=== PATIENT | female | born 1945 | race Caucasian/White ===

== ENCOUNTER → 2018-05-20 | Outpatient (CLI) | payer MEDICARE, OTHER | END | disposition home or self-care (01) | LOC: LAB SHORT 12:15 → LAB 12:15 | PROVIDERS: Obstetrics & Gynecology | DX: Z11.51 Encounter for screening for human papillomavirus (HPV) (principal); Z91.89 Other specified personal risk factors, not elsewhere classified | CPT/HCPCS: 87624; G0123 ==

== ENCOUNTER 2019-01-27 07:47 | Day surgery (SDC) | payer MEDICARE, OTHER ==
[~2019-01-27] VITALS: Ht 170.2 cm; Wt 69.1 kg
[~2019-01-27 07:47] MED LIST: ASPI81CH PO; BENA20 PO; L-LYSINE500 MG PO; METAMUCIL POWD174 GM PO; MULTI VITAMIN1 EACH PO; SOLI5 PO; VITAMIN C125 MG PO; VITAMIN D35000 UNIT PO
--- NOTE | 2019-01-27 09:23 | NUR ---
01/27/19 0923 Ernst Johnson IV IN RIGHT AC WAS INFILTRATED. IV RESTARTED IN LEFT HAND WITHOUT INCIDENT, PATIENT TOLERATED WELL. INFILTRATED SITE WRAPPED WITH COBAN.
== END 2019-01-27 10:06 | disposition home or self-care (01) ==
LOC: ORSCSDS 07:47
PROVIDERS: Internal Medicine Gastroenterology
PROC: 0DJD8ZZ Inspection of Lower Intestinal Tract, Via Natural or Artificial Opening Endoscopic (ICD-10-PCS; principal; 2019-01-27 09:00)
DX: Z12.11 Encounter for screening for malignant neoplasm of colon (principal); K57.30 Diverticulosis of large intestine without perforation or abscess without bleeding; I10 Essential (primary) hypertension; K21.9 Gastro-esophageal reflux disease without esophagitis; Z87.891 Personal history of nicotine dependence; Z79.82 Long term (current) use of aspirin; Z79.899 Other long term (current) drug therapy
CPT/HCPCS: J0330; J1980; J2405; J7120

== ENCOUNTER → 2019-08-02 | Outpatient (CLI) | payer MEDICARE, OTHER ==
[2019-08-03 06:40] LABS: Candida species (DNA Probe) Negative (NEGATIVE); G. vaginalis (DNA Probe) Positive (NEGATIVE); T. vaginalis (DNA Probe) Negative (NEGATIVE)
[2019-08-04 15:07] LABS: HPV 16 Negative (Negative); HPV 18 Negative (Negative); HPV OTHER HR TYPES Positive (Negative)
== END | disposition home or self-care (01) ==
LOC: LAB SHORT 15:58 → LAB 15:58
PROVIDERS: Obstetrics & Gynecology
DX: Z01.419 Encounter for gynecological examination (general) (routine) without abnormal findings (principal); R87.810 Cervical high risk human papillomavirus (HPV) DNA test positive; Z91.89 Other specified personal risk factors, not elsewhere classified; N76.0 Acute vaginitis
CPT/HCPCS: 87480; 87510; 87624; 87625; 87660; G0123

== ENCOUNTER → 2020-08-03 | Outpatient (CLI) | payer MEDICARE, OTHER ==
[2020-08-04 07:21] LABS: Candida species (DNA Probe) Negative (NEGATIVE); G. vaginalis (DNA Probe) Positive (NEGATIVE); T. vaginalis (DNA Probe) Negative (NEGATIVE)
== END | disposition home or self-care (01) ==
LOC: LAB 16:45 → LAB SHORT 16:45
PROVIDERS: Advanced Practice Midwife
DX: N76.0 Acute vaginitis (principal)
CPT/HCPCS: 87480; 87510; 87660

== ENCOUNTER 2020-09-27 07:27 | Inpatient (IN) | payer MEDICARE, OTHER ==
[~2020-09-27] VITALS: Ht 167.6 cm; Wt 69.0 kg
[~2020-09-27 07:27] MED LIST changes: +ASCO500 PO; -ASPI81CH PO; +Aspirin EC81 MG PO; -METAMUCIL POWD174 GM PO; +METAMUCIL POWD575 GM PO; -VITAMIN C125 MG PO
[2020-09-27] MEDS ORDERED: NITROGLYCERIN0.4 M3 SL (07:51)
[2020-09-27 08:10] LABS: BASOPHILS ABSOLUTE AUTO 0.04 K/mm3 (0.00-0.23); BASOPHILS PERCENT AUTO 1 % (0-2); EOSINOPHILS ABSOLUTE AUTO 0.07 K/mm3 (0.00-0.68); EOSINOPHILS PERCENT AUTO 1 % (0-6); Hematocrit 42.8 % (33.0-51.0); Hemoglobin 14.2 g/dL (11.5-16.0); IMMATURE GRAN ABSOLUTE AUTO 0.02 K/mm3 (0.00-0.10); IMMATURE GRAN PERCENT AUTO 0 % (0-1); LYMPHOCYTES ABSOLUTE AUTO 1.32 K/mm3 (0.84-5.20); LYMPHOCYTES PERCENT AUTO 20 % (21-46); MONOCYTES ABSOLUTE AUTO 0.38 K/mm3 (0.16-1.47); MONOCYTES PERCENT AUTO 6 % (4-13); Mean Corpuscular HGB 32.1 pg (26.0-34.0); Mean Corpuscular HGB Conc 33.2 g/dL (31.5-36.5); Mean Corpuscular Volume 97 fL (80-100); Mean Platelet Volume 9.7 fL (9.1-12.4); NEUTROPHILS ABSOLUTE AUTO 4.72 K/mm3 (1.96-9.15); NEUTROPHILS PERCENT AUTO 72 % (41-73); Platelet Count 206 K/mm3 (150-400); RDW Coefficient Variation 12.2 % (11.7-14.2); RDW Standard Deviation 43.8 fL (35.1-46.3); Red Blood Cell Count 4.43 M/mm3 (3.80-5.20); White Blood Cell Count 6.55 K/mm3 (4.00-11.30)
[2020-09-27 08:27] LABS: Alanine Aminotransfer (ALT/SGP 46 U/L (12-78); Albumin, Blood 3.8 g/dL (3.4-5.0); Albumin/Globulin Ratio 1.1 (0.8-1.8); Alk Phos 93 U/L (50-136); Anion Gap 6 mmol/L (6-16); Aspartate Aminotrans (AST/SGOT 22 U/L (12-37); Bilirubin, Total 0.6 mg/dL (0.1-1.0); Blood Urea Nitrogen 20 mg/dL (8-24); Bun/Creatinine Ratio 30.8 (12.0-20.0); CO2, Blood 27 mmol/L (21-32); Calcium, Blood 9.7 mg/dL (8.5-10.1); Chloride, Blood 110 mmol/L (98-108); Creatinine, Blood 0.65 mg/dL (0.40-1.00); Globulin, Blood 3.6 g/dL (2.2-4.0); Glomerular Filtration Rate >60 (60-); Glucose, Blood 93 mg/dL (70-99); Potassium, Blood 3.9 mmol/L (3.5-5.5); Sodium, Blood 143 mmol/L (136-145); Total Protein, Blood 7.4 g/dL (6.4-8.2); Troponin I <0.015 ng/mL (0.000-0.040)
--- NOTE | 2020-09-27 13:35 | NUR ---
PT ARRIVED IN THE UNIT VIA STRETCHER PT WAS ABLE TO AMBULATE TO HOSPITAL BED. PT IS HERE FOR CHEST PAIN, PT HAD NITRO PATCH FROM ER ON RIGHT SHOULDER, PT DENIES ANY CHEST PAIN AT THIS TIME, CRIME SCENE INVESTIGATOR IS CONSULTED CURRENTLY NPO AT THIS TIME, VITALS HRR SINUS WITH RBBB AT 90'S, BP SYSTOLIC 130'S, SATS ABOVE 95% ON ROOMAIR, AFEBRILE. NS RUNNING AT 75MLS/HR, NO COMPLAINS AT THIS TIME, AT BEDSIDE. AWAITING FOR DR HAYDEN TO SEE THE PT TODAY. PT IN BED RESTING CALL LIGHTS IN REACH, WILL MONITOR
--- NOTE | 2020-09-27 18:04 | NUR ---
PT FOR ANGIO IN AM, NPO AFTER MIDNIGHT. NITRO PATCH WAS REMOVED PER DR HAYDEN DUE TO HEADACHE. PT DENIES ANY CHEST PAIN AT THIS TIME. HEADACHE RELEIVED BY TYLENOL. TROPONINS HAVE BEEN NEGATIVE AT THIS TIME. PT STARTED ON LOW DOSE 12.5MG METOPROLOL TODAY. VITALS HAS BEEN STABLE, NO ACUTE CHANGE AT THIS TIME, PT IN BED EATING DINNER, CALL LIGTHS IN REACH WILL REPORT TO ONCOMING SHIFT
[2020-09-27 23:01] LABS: Influenza A, PCR Negative (NEGATIVE); Influenza B, PCR Negative (NEGATIVE); Resp Syncytial Virus, PCR Negative (NEGATIVE); SARS-Cov-2 (COVID-19) PCR, MMC Negative (NEGATIVE)
[2020-09-28 04:10] LABS: Hematocrit 38.4 % (33.0-51.0); Mean Corpuscular HGB 32.9 pg (26.0-34.0); Mean Corpuscular HGB Conc 33.9 g/dL (31.5-36.5); Mean Corpuscular Volume 97 fL (80-100); Platelet Count 196 K/mm3 (150-400); RDW Coefficient Variation 12.2 % (11.7-14.2); RDW Standard Deviation 43.9 fL (35.1-46.3); Red Blood Cell Count 3.95 M/mm3 (3.80-5.20); White Blood Cell Count 5.79 K/mm3 (4.00-11.30)
[2020-09-28 04:32] LABS: Very Low Density Lipoprot Chol 15 mg/dL (6-32)
[2020-09-28 04:33] LABS: Anion Gap 4 mmol/L (6-16); Blood Urea Nitrogen 20 mg/dL (8-24); Bun/Creatinine Ratio 32.6 (12.0-20.0); CHOL/HDL RATIO 2.8; CO2, Blood 27 mmol/L (21-32); Calcium, Blood 8.7 mg/dL (8.5-10.1); Chloride, Blood 114 mmol/L (98-108); Cholesterol 183 mg/dL (50-200); Creatinine, Blood 0.61 mg/dL (0.40-1.00); Glomerular Filtration Rate >60 (60-); Glucose, Blood 82 mg/dL (70-99); HDL Cholesterol 66 mg/dL (>39); LDL/HDL RATIO 1.5; Low Density Lipoprotein Chol 102 mg/dL (0-110); Sodium, Blood 145 mmol/L (136-145); Triglycerides 77 mg/dL (30-160)
--- NOTE | 2020-09-28 04:50 | NUR ---
SHIFT SUMMARY PT IS STABLE AND DENIES CHEST PAIN. VITALS ARE STABLE WITH BP 108-125 SYSTOLIC, HR IN THE 80'S WITH SINUS RHYTHM, PT ON ROOM AIR WITH SATS IN THE HIGH 90'S. PT STATED HAVING A HEADACHE AT THE START OF SHIFT, GAVE PRN ACETAMINOPHEN AND PT SLEPT MOST OF THE NIGHT. PT HAS BEEN NPO SINCE MIDNIGHT. PT STATES BEING COMFORTABLE, IS AWAKE AND WATCHING TV, WILL CONTINUE TO MONITOR UNTIL SHIFT CHANGE.
--- NOTE | 2020-09-28 07:17 | NUR ---
ASSUMED CARE: PT AWAKE, ALERT AND ORIENTED. SITTING IN BED WITH NS RUNNING 75 MLS/HR. NSR ON TELE, DENIES CP. AT BEDSIDE AND HEART CENTER STAFF CAME TO TAKE HER FOR PROCEDURE AT THIS TIME, VIA BED.
--- NOTE | 2020-09-28 10:13 | NUR ---
Permission for care Patient gave DENNYS Barillas, permission to assist with her care.
--- NOTE | 2020-09-28 12:30 | NUR ---
CALL TO HEART CENTER TO VERIFY RECATH. HEART CENTER STAFF STATES ESTIMATING AROUND 1400. STATES OK TO BEGIN DEFLATING TR BAND. 2CC REMOVED FROM TR BAND WITHOUT HEMATOMA OR BLEEDING NOTED.
--- NOTE | 2020-09-28 13:00 | NUR ---
PT TAKEN TO DOORPERSON AT THIS TIME BY HEART CENTER STAFF
--- NOTE | 2020-09-28 17:52 | NUR ---
SHIFT SUMMARY: PT RETURNED FROM MAIL RIDER WITH RIGHT RADIAL SITE. SCANT AMOUNT OF BLEEDING. NO SIGNS OF BRUISING OR HEMATOMA. VSS. POSSIBLE DC TOMORROW. NO ACUTE NEEDS OR CONCERNS. DENIES CHEST PAIN
--- NOTE | 2020-09-28 18:42 | NUR ---
4CC REMOVED FROM TR BAND. NO SIGN OF BLEEDING OR SWELLING AT THIS TIME.
--- NOTE | 2020-09-28 20:40 | NUR ---
CARE ASSUMPTION PT A&OX4. SP02>96% ON RA. TELEMETRY READS SR, 80'S. PT DENIES PAIN. PT HAS R RADIAL SITE. UPON SHIFT CHANGE, SITE HAD SMALL HEMATOMA BETWEEN BAND AND WRIST. MARKED WITH SKIN MARKER. BEGAN DEFLATING TR BAND AFTER SHIFT CHANGE, NO BLEEDING. PT INDEPENDENT IN ROOM. CALL LIGHT IN REACH. WILL CONTINUE TO MONITOR.
--- NOTE | 2020-09-29 00:50 | NUR ---
TR BAND REMOVED TR BAND FULLY DEFLATED AT 2315. TR BAND REMOVED AT 0050. SOFT, PT STATES NON TENDER, NO PAIN. PREVIOUS MENTIONED HEMATOMA HAS RESOLVED, NO BRUISING OR BLEEDING. TEGADERM PLACED ON SITE. ARM BOARD IN PLACE. WILL CONTINUE TO MONITOR.
[2020-09-29 04:24] LABS: Hematocrit 36.6 % (33.0-51.0); Hemoglobin 12.2 g/dL (11.5-16.0); Mean Corpuscular HGB 32.3 pg (26.0-34.0); Mean Corpuscular HGB Conc 33.3 g/dL (31.5-36.5); Mean Corpuscular Volume 97 fL (80-100); Mean Platelet Volume 9.8 fL (9.1-12.4); Platelet Count 196 K/mm3 (150-400); RDW Coefficient Variation 12.2 % (11.7-14.2); RDW Standard Deviation 43.6 fL (35.1-46.3); Red Blood Cell Count 3.78 M/mm3 (3.80-5.20); White Blood Cell Count 6.01 K/mm3 (4.00-11.30)
[2020-09-29 04:57] LABS: Anion Gap 5 mmol/L (6-16); Blood Urea Nitrogen 18 mg/dL (8-24); Bun/Creatinine Ratio 31.9 (12.0-20.0); CO2, Blood 26 mmol/L (21-32); Calcium, Blood 8.9 mg/dL (8.5-10.1); Chloride, Blood 111 mmol/L (98-108); Creatinine, Blood 0.56 mg/dL (0.40-1.00); Glomerular Filtration Rate >60 (60-); Glucose, Blood 81 mg/dL (70-99); Phosphorus, Blood 3.1 mg/dL (2.5-4.9); Potassium, Blood 3.5 mmol/L (3.5-5.5); Sodium, Blood 142 mmol/L (136-145)
--- NOTE | 2020-09-29 06:49 | NUR ---
SHIFT SUMMARY NO ACUTE CHANGES THIS SHIFT. PT A&OX4. PLEASANT AND COOPERATIVE. INDEPENDENT IN ROOM. SP02>92% ON RA. TELEMETRY READS SR, HR 70'S. PT DENIES CP/PRESSURE. R RADIAL SITE WNL. TR BAND REMOVED AND TEGADREM PLACED ON SITE THIS SHIFT. SEE PREVIOUS NOTE. ARM BOARD IN PLACE. DR. HAYDEN IN TO SEE PT THIS AM AND INSPECT R RADIAL SITE. PT AMBULATED TO BATHROOM MULTIPLE TIMES DURING THE NIGHT AND SLEPT THE MAJORITY OF SHIFT. CALL LIGHT IN REACH. WILL GIVE REPORT TO ONCOMING DAY SHIFT NURSE.
--- NOTE | 2020-09-29 07:19 | NUR ---
ASSUMED PATIENT CARE. PATIENT RESTING COMFORTABLY IN BED, CONVERSING WITH NURSING STAFF. NO DISCHARGE NOTED AT ANGIO SITE. NO SIGNS OF ACUTE DISTRESS, WCTM.
[2020-09-29] MEDS ORDERED: ACET325 PO (12:14)
[2020-09-29] MEDS ORDERED: CLOP75 PO (12:15)
[2020-09-29] MEDS ORDERED: ATOR20 PO (12:15)
[2020-09-29] MEDS ORDERED: METO25ER PO (12:16)
--- NOTE | 2020-09-29 12:40 | NUR ---
PATIENT AND SPOUSE PROVIDED DISCHARGE INFO REGARDING FOLLOW UP PLANS, MEDICATION INFO, REASONS TO RETURN TO THE HOSPITAL, AND ANGIO SITE CARE. PATIENT AND SPOUSE VERBALIZED UNDERSTANDING. NO DISCHRAGE/HEMATOMA NOTED AT ANGIO SITE. NO SIGNS OF ACUTE DISTRESS.
== END 2020-09-29 12:48 | disposition home or self-care (01) | DRG 281 ==
LOC: ER 07:27 → PCU 11:53
PROVIDERS: Emergency Medicine; Internal Medicine Cardiovascular Disease; Nurse Practitioner Acute Care; ADMIT Internal Medicine
PROC: 4A023N7 Measurement of Cardiac Sampling and Pressure, Left Heart, Percutaneous Approach (ICD-10-PCS; principal; 2020-09-28)
PROC: B2111ZZ Fluoroscopy of Multiple Coronary Arteries using Low Osmolar Contrast (ICD-10-PCS; 2020-09-28)
PROC: 4A033BC Measurement of Arterial Pressure, Coronary, Percutaneous Approach (ICD-10-PCS; 2020-09-28)
DX: I21.4 Non-ST elevation (NSTEMI) myocardial infarction (principal); I45.2 Bifascicular block; Z79.82 Long term (current) use of aspirin; Z87.891 Personal history of nicotine dependence; E78.5 Hyperlipidemia, unspecified; I10 Essential (primary) hypertension; N32.81 Overactive bladder; E87.6 Hypokalemia; Z20.828 Contact with and (suspected) exposure to other viral communicable diseases
CPT/HCPCS: 0241U; 36415; 71045; 76937; 80048; 80053; 80061; 80069; 84443; 84484; 85025; 85027; 85347; 92978; 93005; 93010; 93306; 93458; 93571; 99152; 99153; 99285-25; A9270; A9270-GY; C1753; C1769; C1887; C1894; J1644; J2250; J2405; J3010; J7030; J7040; J7050; Q9967

== ENCOUNTER → 2021-01-17 | Outpatient (CLI) | payer MEDICARE, OTHER ==
[~2021-01-17] MED LIST changes: +ACET325 PO; +ATOR20 PO; +CLOP75 PO; +METO25ER PO; +NITROGLYCERIN0.4 M3 SL
[2021-01-18 15:10] LABS: HPV 16 Negative (Negative); HPV 18 Negative (Negative); HPV OTHER HR TYPES Positive (Negative)
== END | disposition home or self-care (01) ==
LOC: LAB 14:36 → LAB SHORT 14:36
PROVIDERS: Obstetrics & Gynecology
DX: Z01.419 Encounter for gynecological examination (general) (routine) without abnormal findings (principal)
CPT/HCPCS: 87624; 87625; G0123

== ENCOUNTER 2021-11-22 15:31 | Inpatient (IN) | payer MEDICARE ==
[~2021-11-22] VITALS: Ht 167.6 cm; Wt 71.9 kg
[2021-11-22 16:48] LABS: BASOPHILS ABSOLUTE AUTO 0.04 K/mm3 (0.00-0.23); BASOPHILS PERCENT AUTO 1 % (0-2); EOSINOPHILS ABSOLUTE AUTO 0.12 K/mm3 (0.00-0.68); EOSINOPHILS PERCENT AUTO 1 % (0-6); Hematocrit 43.7 % (33.0-51.0); Hemoglobin 14.9 g/dL (11.5-16.0); IMMATURE GRAN ABSOLUTE AUTO 0.02 K/mm3 (0.00-0.10); IMMATURE GRAN PERCENT AUTO 0 % (0-1); LYMPHOCYTES ABSOLUTE AUTO 1.85 K/mm3 (0.84-5.20); LYMPHOCYTES PERCENT AUTO 22 % (21-46); MONOCYTES ABSOLUTE AUTO 0.52 K/mm3 (0.16-1.47); MONOCYTES PERCENT AUTO 6 % (4-13); Mean Corpuscular HGB Conc 34.1 g/dL (31.5-36.5); Mean Corpuscular Volume 97 fL (80-100); Mean Platelet Volume 9.7 fL (9.1-12.4); NEUTROPHILS PERCENT AUTO 70 % (41-73); Platelet Count 205 K/mm3 (150-400); RDW Coefficient Variation 12.5 % (11.7-14.2); RDW Standard Deviation 45.1 fL (35.1-46.3); Red Blood Cell Count 4.51 M/mm3 (3.80-5.20); White Blood Cell Count 8.45 K/mm3 (4.00-11.30)
[2021-11-22 17:15] LABS: Alanine Aminotransfer (ALT/SGP 146 U/L (12-78); Albumin, Blood 3.7 g/dL (3.4-5.0); Albumin/Globulin Ratio 1.1 (0.8-1.8); Alk Phos 112 U/L (50-136); Anion Gap 5 mmol/L (6-16); Aspartate Aminotrans (AST/SGOT 178 U/L (12-37); Bilirubin, Total 0.5 mg/dL (0.1-1.0); Blood Urea Nitrogen 23 mg/dL (8-24); Bun/Creatinine Ratio 38.1 (12.0-20.0); CO2, Blood 26 mmol/L (21-32); Calcium, Blood 9.6 mg/dL (8.5-10.1); Chloride, Blood 110 mmol/L (98-108); Globulin, Blood 3.5 g/dL (2.2-4.0); Glomerular Filtration Rate >60 (60-); Glucose, Blood 164 mg/dL (70-99); Potassium, Blood 3.7 mmol/L (3.5-5.5); Sodium, Blood 141 mmol/L (136-145); Total Protein, Blood 7.2 g/dL (6.4-8.2); Troponin I <0.015 ng/mL (0.000-0.040)
[2021-11-22 17:52] LABS: Influenza A, PCR NEGATIVE (NEGATIVE); Influenza B, PCR NEGATIVE (NEGATIVE); Resp Syncytial Virus, PCR NEGATIVE (NEGATIVE); SARS-Cov-2 (COVID-19) PCR, MMC NEGATIVE (NEGATIVE)
[2021-11-22 20:28] LABS: Troponin I 0.018 ng/mL (0.000-0.040)
--- NOTE | 2021-11-22 22:00 | NUR ---
Report recv'd from ER. Admit assessment complete. HR in upper 20's with complete heart block. Blood pressure stable. Educated on plan of care, questions answered. Verbalizes understanding.
[2021-11-22] MEDS ORDERED: METO25 PO (23:17)
[2021-11-23 03:41] LABS: BASOPHILS ABSOLUTE AUTO 0.02 K/mm3 (0.00-0.23); BASOPHILS PERCENT AUTO 0 % (0-2); EOSINOPHILS ABSOLUTE AUTO 0.02 K/mm3 (0.00-0.68); EOSINOPHILS PERCENT AUTO 0 % (0-6); Hemoglobin 13.8 g/dL (11.5-16.0); IMMATURE GRAN ABSOLUTE AUTO 0.02 K/mm3 (0.00-0.10); IMMATURE GRAN PERCENT AUTO 0 % (0-1); LYMPHOCYTES ABSOLUTE AUTO 2.03 K/mm3 (0.84-5.20); LYMPHOCYTES PERCENT AUTO 26 % (21-46); MONOCYTES ABSOLUTE AUTO 0.53 K/mm3 (0.16-1.47); MONOCYTES PERCENT AUTO 7 % (4-13); Mean Corpuscular HGB Conc 33.7 g/dL (31.5-36.5); Mean Corpuscular Volume 98 fL (80-100); Mean Platelet Volume 9.9 fL (9.1-12.4); NEUTROPHILS ABSOLUTE AUTO 5.16 K/mm3 (1.96-9.15); NEUTROPHILS PERCENT AUTO 66 % (41-73); Platelet Count 190 K/mm3 (150-400); RDW Coefficient Variation 12.7 % (11.7-14.2); RDW Standard Deviation 45.6 fL (35.1-46.3); Red Blood Cell Count 4.18 M/mm3 (3.80-5.20); White Blood Cell Count 7.78 K/mm3 (4.00-11.30)
[2021-11-23 03:51] LABS: Alanine Aminotransfer (ALT/SGP 161 U/L (12-78); Albumin, Blood 3.3 g/dL (3.4-5.0); Albumin/Globulin Ratio 1.1 (0.8-1.8); Alk Phos 96 U/L (50-136); Anion Gap 10 mmol/L (6-16); Aspartate Aminotrans (AST/SGOT 122 U/L (12-37); Bilirubin, Total 0.8 mg/dL (0.1-1.0); Blood Urea Nitrogen 26 mg/dL (8-24); Bun/Creatinine Ratio 47.9 (12.0-20.0); CO2, Blood 22 mmol/L (21-32); Calcium, Blood 8.9 mg/dL (8.5-10.1); Chloride, Blood 111 mmol/L (98-108); Creatinine, Blood 0.54 mg/dL (0.40-1.00); Globulin, Blood 2.9 g/dL (2.2-4.0); Glomerular Filtration Rate >60 (60-); Glucose, Blood 114 mg/dL (70-99); Potassium, Blood 3.9 mmol/L (3.5-5.5); Sodium, Blood 143 mmol/L (136-145); Total Protein, Blood 6.2 g/dL (6.4-8.2)
[2021-11-23 03:57] LABS: Troponin I 0.07 ng/mL (0.000-0.040)
--- NOTE | 2021-11-23 05:21 | NUR ---
Remains in complete heart block with rate 24-30, with stable blood pressure. Alert and oriented, denies needs or complaints. Has been NPO for pacemaker placement.
--- NOTE | 2021-11-23 08:02 | NUR ---
CARE ASSUMPTION / PAUSE PT A&O X4. REPORTS FEELING "FINE" ON CARE ASSUMPTION. VSS. SPO2 > 92% ON RA. MONITOR SHOWING 3RD DEGREE HB, HR 20's-30's. PT W/ CARDIAC EVENT, SHOWING P WAVES ONLY, NO QRS FROM 0735:08 TO 0735:21 (EVENT STRIP IN CHART). AGRICULTURE LABORER & THIS RN TO PT RM. ZOLL ALREADY AT BEDSIDE W/ PATCHES ALREADY ON PT. CRASH CART NOW OUTSIDE OF PT RM. PT REPORTING HAVING FELT LIGHTHEADED & FURTHER REPORTS "THE SAME THING HAPPENED YESTERDAY WHEN I WAS SITTING AT MY DESK & I HAD TO GRAB ON TO SOMETHING." AGRICULTURE LABORER NOTIFIED MD HAYDEN OF EVENT. WILL CONTINUE TO MONITOR UNTIL PT TAKEN TO HOOK TENDER FOR PACER THIS AM.
--- NOTE | 2021-11-23 09:09 | NUR ---
PT GONE TO MMI TEACHER FOR PACER @ THIS TIME.
--- NOTE | 2021-11-23 11:41 | NUR ---
PACER PT BROUGHT BACK TO ICU-13 FROM TURNAROUND PLANNER @ APPROX 1110 AFTER HAVING DUAL CHAMBER PLACED. PT A&O X4. VSS. SPO2 > 92% ON RA. MONITOR SHOWING PACING, HR 80's. PT REPORTING LCW PACER INSERTION SITE & L ARMPIT "SORE". L ARM PLACED IN SLING & ICE PACK APPLIED TO LCW. SLIGHT SWELLING NOTED TO SITE. NO REDNESS OR BLEEDING. R GROIN SITE WNL, NO BLEEDING OR HEMATOMA. DRESSING C/D/I.
--- NOTE | 2021-11-23 13:24 | NUR ---
UPDATE PT GONE TO IMAGING FOR POST PACER CXR. PT BACK IN W/ ECHO NOW BEING DONE AT BEDSIDE.
--- NOTE | 2021-11-23 18:31 | NUR ---
SHIFT SUMMARY PT A&O X4. VSS. MONITOR SHOWING 3RD DEGREE HB, HR 20's-30's THIS AM W/ PAUSES (SEE PREVIOUS NOTES & EVENT STRIPS IN CHART). PT TAKEN TO REPAIR CLERK FOR DUAL CHAMBER PACER PLACEMENT THIS AM. LCW PACER SITE W/ SOME BRUISING. PT REPORTING SITE "SORE". PT MEDICATED PER EMAR W/ PRN TYLENOL X1 & PRN NORCO X2 THIS SHIFT W/ SOME IMPROVEMENT. L ARM IN SLING, PT COMPLIANT W/ MOBILITY RESTRICTIONS. R GROIN ACCESS SITE WNL. CXR DONE TODAY. ECHO DONE TODAY. PT MADE PCU STATUS, THEN SURGICAL W/ TELE STATUS. MONITOR SHOWING PACED RHYTHM, HR 80's.
--- NOTE | 2021-11-23 19:20 | NUR ---
TRANSFER NOTE REPORT GIVEN TO MEDICAL ASSEMBLER GALVANIZER ASSUMING CARE OF PT. PT TAKEN TO RM 221 BY PCT IN PT BED W/ BELONGINGS @ APPROX 1920.
--- NOTE | 2021-11-24 04:57 | NUR ---
STRUCTURAL RIGGER SUMMARY PT TRANSFERED FROM ICU AT START OF SHIFT. AAOX4 AND VERY PLEASANT. PT HAD PACER PLACED DURING DAY SHIFT. PACED IN THE 70'S PER TECHNICAL BUSINESS ANALYST. PT DENIES ANY CP/PRESSURE AND REPORTS NO DIZZINESS WHEN AMBULATING. DRESSING ON R GROIN SITE C/D/I WITH NO PAIN PER PT. PT DOES COMPLAIN OF DISCOMFORT OF SURGICAL SITE ON L ARMPIT/SHOULDER FROM PACER PLACMENT. MEDICATED FOR PAIN X1 PER EMAR. PT HAS RESTED COMFORTABLY MOST OF THE NIGHT. VSS, WILL CONTINUE TO MONITOR.
[2021-11-24] MEDS ORDERED: NORCO 7.5-3251 EAC1 PO (09:54)
--- NOTE | 2021-11-24 14:08 | NUR ---
discharge intructions explained to patient and copy of dc instructions given. patient verbalize understanding. dressings to left shoulder/chest and r groin are both clean dry and intact. prescription for pain medication given. personal belongings sent with patient. iv x 2 removed. w/c to exit, here to take patient home.
== END 2021-11-24 14:20 | disposition home or self-care (01) | DRG 243 ==
LOC: ER 15:31 → ERHOLD 15:32 → ICUW 15:33 → ER 17:23 → ERHOLD 17:23 → ICUW 22:08 → ERHOLD 22:08 → ICUW 22:10 → SURS 11-23 19:46
PROVIDERS: Emergency Medicine; Physician Assistant; ADMIT Internal Medicine
PROC: 0JH606Z Insertion of Pacemaker, Dual Chamber into Chest Subcutaneous Tissue and Fascia, Open Approach (ICD-10-PCS; principal; 2021-11-23)
PROC: 02H63JZ Insertion of Pacemaker Lead into Right Atrium, Percutaneous Approach (ICD-10-PCS; 2021-11-23)
PROC: 02HK3JZ Insertion of Pacemaker Lead into Right Ventricle, Percutaneous Approach (ICD-10-PCS; 2021-11-23)
DX: I49.5 Sick sinus syndrome (principal); I44.2 Atrioventricular block, complete; I24.8 Other forms of acute ischemic heart disease; Z20.822 Contact with and (suspected) exposure to COVID-19; R79.89 Other specified abnormal findings of blood chemistry; I10 Essential (primary) hypertension; I25.10 Atherosclerotic heart disease of native coronary artery without angina pectoris; E78.5 Hyperlipidemia, unspecified; N32.81 Overactive bladder; K57.90 Diverticulosis of intestine, part unspecified, without perforation or abscess without bleeding; I25.2 Old myocardial infarction; Z87.891 Personal history of nicotine dependence; Z79.82 Long term (current) use of aspirin; Z79.02 Long term (current) use of antithrombotics/antiplatelets; Z79.899 Other long term (current) drug therapy; Z98.890 Other specified postprocedural states; Z85.828 Personal history of other malignant neoplasm of skin
CPT/HCPCS: 0241U; 33208; 36415; 71045; 71046; 80053; 82550; 83880; 84443; 84484; 85025; 93005; 93010; 93306; 96374; 99152; 99153; 99285-25; A9270; C1769; C1785; C1894; C1898; G0378; J0461; J0690; J1580; J1610; J1644; J2250; J3010; J7030; J7040; J7050

== ENCOUNTER 2021-12-12 07:42 | Emergency (ER) | payer MEDICARE ==
[~2021-12-12] VITALS: Ht 167.6 cm; Wt 68.0 kg
[~2021-12-12 07:42] MED LIST changes: +METO25 PO; +NORCO 7.5-3251 EAC1 PO
[2021-12-12] MEDS ORDERED: Benazepril HCl10 MG PO (08:21)
[2021-12-12 08:22] LABS: BASOPHILS ABSOLUTE AUTO 0.04 K/mm3 (0.00-0.23); BASOPHILS PERCENT AUTO 1 % (0-2); EOSINOPHILS ABSOLUTE AUTO 0.09 K/mm3 (0.00-0.68); EOSINOPHILS PERCENT AUTO 2 % (0-6); Hematocrit 42.5 % (33.0-51.0); Hemoglobin 14.6 g/dL (11.5-16.0); IMMATURE GRAN ABSOLUTE AUTO 0.01 K/mm3 (0.00-0.10); IMMATURE GRAN PERCENT AUTO 0 % (0-1); LYMPHOCYTES ABSOLUTE AUTO 1.75 K/mm3 (0.84-5.20); LYMPHOCYTES PERCENT AUTO 36 % (21-46); MONOCYTES ABSOLUTE AUTO 0.33 K/mm3 (0.16-1.47); MONOCYTES PERCENT AUTO 7 % (4-13); Mean Corpuscular HGB 32.7 pg (26.0-34.0); Mean Corpuscular HGB Conc 34.4 g/dL (31.5-36.5); Mean Corpuscular Volume 95 fL (80-100); Mean Platelet Volume 9.6 fL (9.1-12.4); NEUTROPHILS ABSOLUTE AUTO 2.71 K/mm3 (1.96-9.15); NEUTROPHILS PERCENT AUTO 55 % (41-73); Platelet Count 214 K/mm3 (150-400); RDW Coefficient Variation 11.9 % (11.7-14.2); RDW Standard Deviation 41.9 fL (35.1-46.3); Red Blood Cell Count 4.47 M/mm3 (3.80-5.20); White Blood Cell Count 4.93 K/mm3 (4.00-11.30)
[2021-12-12] MEDS ORDERED: Isosorbide Mono30 MG PO (08:22)
[2021-12-12 08:38] LABS: Alanine Aminotransfer (ALT/SGP 46 U/L (12-78); Albumin, Blood 3.8 g/dL (3.4-5.0); Albumin/Globulin Ratio 1.1 (0.8-1.8); Alk Phos 84 U/L (50-136); Anion Gap 7 mmol/L (6-16); Aspartate Aminotrans (AST/SGOT 20 U/L (12-37); Bilirubin, Total 0.7 mg/dL (0.1-1.0); Blood Urea Nitrogen 13 mg/dL (8-24); Bun/Creatinine Ratio 21.8 (12.0-20.0); CO2, Blood 25 mmol/L (21-32); Calcium, Blood 9.4 mg/dL (8.5-10.1); Chloride, Blood 110 mmol/L (98-108); Globulin, Blood 3.4 g/dL (2.2-4.0); Glomerular Filtration Rate >60 (60-); Glucose, Blood 105 mg/dL (70-99); Potassium, Blood 3.4 mmol/L (3.5-5.5); Sodium, Blood 142 mmol/L (136-145); Total Protein, Blood 7.2 g/dL (6.4-8.2)
[2021-12-12 09:02] LABS: Influenza A, PCR NEGATIVE (NEGATIVE); Influenza B, PCR NEGATIVE (NEGATIVE); Resp Syncytial Virus, PCR NEGATIVE (NEGATIVE); SARS-Cov-2 (COVID-19) PCR, MMC NEGATIVE (NEGATIVE)
== END 2021-12-12 11:57 | disposition home or self-care (01) ==
LOC: ER 07:42
PROVIDERS: Student in an Organized Health Care Education/Training Program
DX: R53.1 Weakness (principal); R06.02 Shortness of breath; E87.6 Hypokalemia; Z95.0 Presence of cardiac pacemaker; I10 Essential (primary) hypertension; I25.2 Old myocardial infarction; I25.10 Atherosclerotic heart disease of native coronary artery without angina pectoris; E78.5 Hyperlipidemia, unspecified; Z79.82 Long term (current) use of aspirin; Z79.899 Other long term (current) drug therapy; Z87.891 Personal history of nicotine dependence
CPT/HCPCS: 0241U; 36415; 71045; 80053; 83735; 83880; 84484; 85025; 93005; 93010; A9270; J7030

== ENCOUNTER → 2022-02-07 | Outpatient (CLI) | payer MEDICARE ==
[~2022-02-07] MED LIST changes: +Benazepril HCl10 MG PO; +Isosorbide Mono30 MG PO
== END ==
LOC: LAB 07:33 → LAB SHORT 07:33
DX: D07.1 Carcinoma in situ of vulva (principal)
CPT/HCPCS: 88305; 88342

== ENCOUNTER 2022-03-12 10:46 | Day surgery (SDC) | payer MEDICARE, OTHER ==
[~2022-03-12] VITALS: Ht 167.6 cm; Wt 70.6 kg
--- NOTE | 2022-03-12 12:28 | NUR ---
03/12/22 1228 Joseph Howell 0.15MG EPI ADDED TO 30ML'S OF 0.5% MARCAINE TO ACHIEVE SOLUTION OF 1:200,000. DOSE VERIFIED BY [email or web address] AND [email or web address].
== END 2022-03-12 13:30 | disposition home or self-care (01) ==
LOC: ORSCSDS 10:46
PROVIDERS: Obstetrics & Gynecology
PROC: 0UBMXZZ Excision of Vulva, External Approach (ICD-10-PCS; principal; 2022-03-12 12:00)
DX: D07.1 Carcinoma in situ of vulva (principal); Z87.891 Personal history of nicotine dependence; I10 Essential (primary) hypertension; Z95.0 Presence of cardiac pacemaker; Z79.899 Other long term (current) drug therapy; Z79.82 Long term (current) use of aspirin
CPT/HCPCS: 88305; J0171; J1100; J1885; J2250; J2405; J2704; J3010; J7120

== ENCOUNTER 2022-11-24 07:51 | Emergency (ER) | payer MEDICARE, OTHER ==
[~2022-11-24] VITALS: Ht 167.6 cm; Wt 71.2 kg
== END 2022-11-24 09:33 | disposition home or self-care (01) ==
LOC: ER 07:51
DX: I10 Essential (primary) hypertension (principal); I25.10 Atherosclerotic heart disease of native coronary artery without angina pectoris; I25.2 Old myocardial infarction; E78.5 Hyperlipidemia, unspecified; Z95.0 Presence of cardiac pacemaker; Z79.899 Other long term (current) drug therapy; Z79.82 Long term (current) use of aspirin; Z87.891 Personal history of nicotine dependence
CPT/HCPCS: 99283